=== PATIENT | female | born 1970 | race Hispanic/Latino ===

== ENCOUNTER 2019-01-07 18:23 | Emergency (ER) | payer OTHER ==
[2019-01-07] MEDS ORDERED: DiphenhydrAMINE HCL 50 MG/ML VIAL ONE (19:07)
[2019-01-07] MEDS ORDERED: KETOROLAC TROMETHAMINE 30MG/ML ONE (19:07)
[2019-01-07] MEDS ORDERED: PROCHLORPERAZINE EDISYLATE 10 MG/2 ML VIAL ONE (19:07)
[2019-01-07 19:12] LABS: BASOPHILS % (AUTO) 0.6 % (0.0-5.0); EOSINOPHILS % (AUTO) 1.8 % (0.0-8.0); HEMATOCRIT 38.3 % (36-48); LYMPHOCYTES % (AUTO) 32.1 % (21.0-51.0); MEAN CORPUSCULAR HEMOGLOBIN 26.5 pg (27.0-33.0); MEAN CORPUSCULAR VOLUME 80.2 fL (79-99); MONOCYTES % (AUTO) 8.5 % (3.0-13.0); NUCLEATED RED BLOOD CELLS 0.1 % (0.0-0.19); PLATELET COUNT (AUTO) 212 K/uL (130-400); RED BLOOD CELL COUNT(AUTO) 4.78 MIL/uL (4.00-5.50); RED CELL DISTRIBUTION WIDTH 18.5 % (11.0-15.5); WHITE BLOOD COUNT (AUTO) 8.4 K/uL (4.8-10.8)
[2019-01-07 19:21] LABS: CREATININE 0.8 mg/dL (0.5-1.5); POTASSIUM 3.9 mmol/L (3.5-5.1)
[2019-01-07 19:25] LABS: ALBUMIN 2.8 g/dL (3.5-5.0); BILIRUBIN,TOTAL 0.2 mg/dL (0.2-1.0); TOTAL PROTEIN, SERUM 6.1 g/dL (6.0-8.3)
== END 2019-01-07 22:50 | disposition home or self-care (01) ==
LOC: EDH 18:23
DX: R51 Headache (principal); E78.5 Hyperlipidemia, unspecified; I10 Essential (primary) hypertension
CPT/HCPCS: 36415; 80053; 85025; 96374; 96375; 99284; J0780; J1200; J1885

== ENCOUNTER 2020-06-02 11:57 | Day surgery (SDC) | payer MEDICAID ==
[~2020-06-02] VITALS: Ht 154.9 cm; Wt 141.1 kg
[2020-06-02] VITALS (9 sets, daily range): BP systolic 96–132; BP diastolic 35–69
[~2020-06-02 11:57] MED LIST: ALBU8TAB PO; ATOR10TA69 PO; ERGO50CA PO; FURO20TA4 PO; LOSA50TA64 PO; MELO-108 PO; POTA-79 PO
[2020-06-02] MEDS ORDERED: SODIUM CHLORIDE 0.9% 1000ML 1,000 ML IV ONE (13:45)
[2020-06-02] MEDS ORDERED: PROPOFOL 10 MG/ML 20ML VIAL IV ONE (15:34)
[2020-06-02] MEDS ORDERED: LIDOCAINE HCL-MPF 2% 5ML VIAL ONE (15:35)
[2020-06-02] MEDS ORDERED: GLYCOPYRROLATE 1 MG/5 ML SYRINGE ONE (15:52)
[2020-06-03] MEDS ORDERED: LACTATED RINGERS 1000ML 1,000 ML IV ONE (10:31)
== END 2020-06-02 16:40 | disposition home or self-care (01) ==
LOC: DAH 11:57 → ENDO 11:57
PROVIDERS: ATTEND Surgery
DX: R13.10 Dysphagia, unspecified (principal); K29.50 Unspecified chronic gastritis without bleeding; B96.81 Helicobacter pylori [H. pylori] as the cause of diseases classified elsewhere; K21.9 Gastro-esophageal reflux disease without esophagitis; E11.9 Type 2 diabetes mellitus without complications; I10 Essential (primary) hypertension; G47.30 Sleep apnea, unspecified; E66.01 Morbid (severe) obesity due to excess calories; Z90.49 Acquired absence of other specified parts of digestive tract; E78.00 Pure hypercholesterolemia, unspecified; Z20.828 Contact with and (suspected) exposure to other viral communicable diseases
CPT/HCPCS: 43239; 82948; 88305; 88342; 93005; A4215; A4221; A4222; A4223; A4606; A4620; A4657; A4663; A6260; C9803; J2704; J3490 ×2; J7030; U0003; J7120

== ENCOUNTER 2020-08-09 13:29 | Inpatient (IN) | payer MEDICAID ==
[~2020-08-09] VITALS: Ht 152.4 cm; Wt 135.3 kg
[2020-08-09] MEDS ORDERED: SODIUM CHLORIDE 0.9% 1000ML 1,000 ML IV ONE (13:51)
[2020-08-09 13:54] LABS: BASOPHILS % (AUTO) 0.2 % (0.0-5.0); HEMATOCRIT 30.9 % (36-48); LYMPHOCYTES % (AUTO) 5.8 % (21.0-51.0); MEAN CORPUSCULAR HEMOGLOBIN 27.7 pg (27.0-33.0); MEAN CORPUSCULAR VOLUME 86.6 fL (79-99); MONOCYTES % (AUTO) 6.1 % (3.0-13.0); NEUTROPHILS % (AUTO) 86.8 % (40.0-77.0); NUCLEATED RED BLOOD CELLS 0.6 % (0.0-0.19); PLATELET COUNT (AUTO) 278 K/uL (130-400); RED BLOOD CELL COUNT(AUTO) 3.57 MIL/uL (4.00-5.50); RED CELL DISTRIBUTION WIDTH 15.9 % (11.0-15.5); WHITE BLOOD COUNT (AUTO) 21.3 K/uL (4.8-10.8)
[2020-08-09 14:02] LABS: CARBON DIOXIDE 28 mmol/L (21-32); CHLORIDE 99 mmol/L (101-111); CREATININE 0.6 mg/dL (0.5-1.5); GLOMERULAR FILTR. RATE CALC 113 mL/min (>60); GLUCOSE,RANDOM 106 mg/dL (70-105); POTASSIUM 3.7 mmol/L (3.5-5.1); SODIUM SERUM 139 mmol/L (136-145); UREA NITROGEN, BLOOD 9 mg/dL (7-18)
[2020-08-09 14:06] LABS: ALANINE AMINOTRANSFERASE 16 U/L (12-78); ALBUMIN 2.4 g/dL (3.5-5.0); AMYLASE 21 U/L (25-115); ASPARTATE AMINOTRANSFERASE 28 U/L (10-37); BILIRUBIN,TOTAL 0.9 mg/dL (0.2-1.0); CREATINE KINASE, TOTAL 20 U/L (21-232); TOTAL PROTEIN, SERUM 6.3 g/dL (6.0-8.3)
[2020-08-09 14:11] LABS: LIPASE < 50 U/L (114-286)
[2020-08-09] MEDS ORDERED: IOHEXOL 350 MG/ML 100ML INFUS..BTL IV ONE (14:15)
[2020-08-09] MEDS ORDERED: ONDANSETRON HCL 4 MG/2 ML VIAL ONE ×2 (15:02→23:56)
[2020-08-09] MEDS ORDERED: MORPHINE SULFATE 4 MG/1ML SYG ONE ×3 (15:02→23:31)
[2020-08-09] MEDS: LACTATED RINGERS 1000ML 1,000 ML IV SCH (17:45)
[2020-08-09] MEDS: ZOSYN 3.375GM+NS 50ML 50 ML IV SCH (18:00)
[2020-08-09] MEDS ORDERED: ZOSYN 3.375GM+NS 50ML 50 ML IV ONE (18:34)
[2020-08-10] VITALS (7 sets, daily range): BP systolic 96–135; BP diastolic 42–61
[2020-08-10] MEDS: LACTATED RINGERS 1000ML 1,000 ML IV SCH ×4 (02:14→20:01)
[2020-08-10] MEDS: ZOSYN 3.375GM+NS 50ML 50 ML IV SCH ×3 (02:27→17:47)
[2020-08-10] MEDS: MORPHINE SULFATE 4 MG/1ML SYG IVP PRN ×3 (03:15→11:57)
[2020-08-10 05:33] LABS: HEMATOCRIT 32.2 % (36-48); MEAN CORPUSCULAR HEMOGLOBIN 27.2 pg (27.0-33.0); MEAN CORPUSCULAR HGB CONC 31.1 g/dL (32.0-36.0); MEAN CORPUSCULAR VOLUME 87.7 fL (79-99); NUCLEATED RED BLOOD CELLS 0.7 % (0.0-0.19); RED BLOOD CELL COUNT(AUTO) 3.67 MIL/uL (4.00-5.50); RED CELL DISTRIBUTION WIDTH 15.8 % (11.0-15.5); WHITE BLOOD COUNT (AUTO) 22.1 K/uL (4.8-10.8)
[2020-08-10 05:41] LABS: CREATININE 0.8 mg/dL (0.5-1.5); POTASSIUM 3.9 mmol/L (3.5-5.1)
[2020-08-10 05:44] LABS: INR 1.21 (0.85-1.15); PARTIAL THROMBOPLASTIN TIME 34.4 SEC (26.3-35.5)
[2020-08-10] MEDS: ONDANSETRON HCL 4 MG/2 ML VIAL IVP PRN (11:56)
[2020-08-10] MEDS ORDERED: DiphenhydrAMINE HCL 50 MG/ML VIAL IV PRN (14:00)
[2020-08-10] MEDS: KETOROLAC TROMETHAMINE 30MG/ML IV SCH ×2 (14:00→20:00)
[2020-08-10] MEDS ORDERED: HYDROMORPHONE 1 MG/1 ML AMP IVP SCH (14:00)
[2020-08-10] MEDS ORDERED: METRONIDAZOLE 500MG/100ML BAG 100 ML ONE (19:33)
[2020-08-10] MEDS: METRONIDAZOLE 500MG/100ML BAG 100 ML IVPB SCH (20:01)
[2020-08-10] MEDS: HYDROMORPHONE 1 MG/1 ML AMP IVP PRN (20:02)
[2020-08-11] MEDS: ZOSYN 3.375GM+NS 50ML 50 ML IV SCH ×3 (00:56→18:00)
[2020-08-11] MEDS: KETOROLAC TROMETHAMINE 30MG/ML IV SCH ×4 (00:56→22:17)
[2020-08-11] MEDS: METRONIDAZOLE 500MG/100ML BAG 100 ML IVPB SCH ×2 (04:24→14:00)
[2020-08-11 04:57] VITALS: BP 115/52
[2020-08-11] MEDS: ONDANSETRON HCL 4 MG/2 ML VIAL IVP PRN (05:00)
[2020-08-11] MEDS: HYDROMORPHONE 1 MG/1 ML AMP IVP PRN (05:01)
[2020-08-11 08:00] VITALS: BP 90/33
[2020-08-11 08:18] LABS: APPEARANCE,URINE SL CLOUDY (CLEAR); BILIRUBIN,URINE MODERATE (NEGATIVE); GLUCOSE, URINE (UA) NEGATIVE (NEGATIVE); KETONES,URINE 15 mg/dL (NEGATIVE); LEUKOCYTE ESTERASE ,URINE NEGATIVE (NEGATIVE); NITRATE,URINE POSITIVE (NEGATIVE); OCCULT BLOOD,URINE SMALL (NEGATIVE); PROTEIN,URINE 100 mg/dL (NEGATIVE); UROBILINOGEN,URINE 0.2 mg/dL (0.2-1.0)
[2020-08-11 08:26] LABS: COLOR,URINE AMBER (YELLOW)
[2020-08-11 08:37] LABS: WBC,URINE 0-1 /HPF (0-1)
[2020-08-11 08:38] LABS: BACTERIA,URINE Many /HPF (None Seen); SQUAMOUS EPITHELIAL CELL,UR Few /HPF (0-2)
[2020-08-11] MEDS: PANTOPRAZOLE SODIUM 40 MG TABLET.DR PO SCH (09:00)
[2020-08-11 11:00] VITALS: BP 103/61
[2020-08-11] MEDS ORDERED: DIATR MEGLU/DIATRIZOATE SODIUM 30 ML BOTTLE ONE ×2 (11:03→15:38)
[2020-08-11] MEDS ORDERED: IOHEXOL-350 75 ML VIAL IV ONE (11:03)
[2020-08-11 16:00] VITALS: BP 98/42
[2020-08-11] MEDS: LACTATED RINGERS 1000ML 1,000 ML IV SCH (16:56)
[2020-08-11 19:45] VITALS: BP 101/56
[2020-08-11 23:59] VITALS: BP 108/59
[2020-08-12] MEDS: LACTATED RINGERS 1000ML 1,000 ML IV SCH ×3 (01:45→17:45)
[2020-08-12 03:27] VITALS: BP 102/43
[2020-08-12] MEDS: ZOSYN 3.375GM+NS 50ML 50 ML IV SCH ×3 (03:33→18:31)
[2020-08-12] MEDS: KETOROLAC TROMETHAMINE 30MG/ML IV SCH ×4 (03:42→21:18)
[2020-08-12 08:00] VITALS: BP 110/62
[2020-08-12] MEDS: PANTOPRAZOLE SODIUM 40 MG TABLET.DR PO SCH (09:00)
[2020-08-12] MEDS: FLUCONAZOLE 200 MG/NS 100 ML 100 ML IV SCH (11:57)
[2020-08-12 13:21] VITALS: BP 108/67
[2020-08-12 17:58] VITALS: BP 121/73
[2020-08-12 19:10] VITALS: BP 111/63
[2020-08-12 22:55] VITALS: BP 115/71
[2020-08-13] MEDS: LACTATED RINGERS 1000ML 1,000 ML IV SCH ×3 (03:18→17:45)
[2020-08-13] MEDS: ZOSYN 3.375GM+NS 50ML 50 ML IV SCH ×3 (03:18→17:54)
[2020-08-13] MEDS: KETOROLAC TROMETHAMINE 30MG/ML IV SCH ×4 (03:21→20:27)
[2020-08-13 03:28] VITALS: BP 106/65
[2020-08-13 08:00] VITALS: BP 113/52
[2020-08-13] MEDS: FLUCONAZOLE 200 MG/NS 100 ML 100 ML IV SCH (09:58)
[2020-08-13] MEDS: PANTOPRAZOLE SODIUM 40 MG TABLET.DR PO SCH (09:58)
[2020-08-13 11:00] VITALS: BP 101/66
[2020-08-13 16:00] VITALS: BP 110/71
[2020-08-13 20:34] VITALS: BP 122/66
[2020-08-13 23:29] VITALS: BP 123/62
[2020-08-14] MEDS: ZOSYN 3.375GM+NS 50ML 50 ML IV SCH ×3 (01:12→19:31)
[2020-08-14] MEDS: LACTATED RINGERS 1000ML 1,000 ML IV SCH ×3 (01:12→17:45)
[2020-08-14] MEDS: KETOROLAC TROMETHAMINE 30MG/ML IV SCH ×4 (02:00→20:00)
[2020-08-14 04:40] VITALS: BP 124/63
[2020-08-14 06:07] LABS: HEMATOCRIT 29.6 % (36-48); MEAN CORPUSCULAR HEMOGLOBIN 27.3 pg (27.0-33.0); MEAN CORPUSCULAR HGB CONC 30.7 g/dL (32.0-36.0); MEAN CORPUSCULAR VOLUME 88.9 fL (79-99); NUCLEATED RED BLOOD CELLS 0.5 % (0.0-0.19); PLATELET COUNT (AUTO) 339 K/uL (130-400); RED BLOOD CELL COUNT(AUTO) 3.33 MIL/uL (4.00-5.50); RED CELL DISTRIBUTION WIDTH 16.4 % (11.0-15.5); WHITE BLOOD COUNT (AUTO) 8.5 K/uL (4.8-10.8)
[2020-08-14 06:21] LABS: ALBUMIN 1.7 g/dL (3.5-5.0); BILIRUBIN,TOTAL 0.4 mg/dL (0.2-1.0); CREATININE 0.6 mg/dL (0.5-1.5); POTASSIUM 3.3 mmol/L (3.5-5.1); TOTAL PROTEIN, SERUM 6.2 g/dL (6.0-8.3)
[2020-08-14 06:53] LABS: LYMPHOCYTES % (MANUAL) 15 % (22-44); MONOCYTES % (MANUAL) 6 % (2-9); SEGMENTED NEUTROPHILS % 79 % (40-70)
[2020-08-14 06:54] LABS: MAN.DIFF COMMENT-IMPRESSION MANUAL DIFFERENTIAL; PLATELET MORPHOLOGY COMMENT ADEQUATE
[2020-08-14 07:53] VITALS: BP 122/74
[2020-08-14 11:00] VITALS: BP 117/72
[2020-08-14] MEDS: PANTOPRAZOLE SODIUM 40 MG TABLET.DR PO SCH (11:50)
[2020-08-14] MEDS: FLUCONAZOLE 200 MG/NS 100 ML 100 ML IV SCH (11:50)
[2020-08-14 16:09] VITALS: BP 137/75
[2020-08-14 19:30] VITALS: BP 121/74
[2020-08-14] MEDS ORDERED: POTASSIUM CHLORIDE 20 MEQ ERTAB PO SCH (19:50)
[2020-08-14 23:54] VITALS: BP 132/73
[2020-08-14] MEDS: HYDROMORPHONE 1 MG/1 ML AMP IVP PRN (23:54)
[2020-08-15] MEDS: KETOROLAC TROMETHAMINE 30MG/ML IV SCH ×2 (02:00→09:14)
[2020-08-15] MEDS: ZOSYN 3.375GM+NS 50ML 50 ML IV SCH ×3 (02:08→18:10)
[2020-08-15] MEDS: LACTATED RINGERS 1000ML 1,000 ML IV SCH (02:09)
[2020-08-15 03:39] VITALS: BP 138/77
[2020-08-15 08:00] VITALS: BP 142/81
[2020-08-15] MEDS: PANTOPRAZOLE SODIUM 40 MG TABLET.DR PO SCH (09:05)
[2020-08-15] MEDS: FLUCONAZOLE 200 MG/NS 100 ML 100 ML IV SCH (09:05)
[2020-08-15 11:00] VITALS: BP 135/77
[2020-08-15] MEDS ORDERED: DIATR MEGLU/DIATRIZOATE SODIUM 30 ML BOTTLE ONE ×2 (14:25)
[2020-08-15 16:00] VITALS: BP 134/80
[2020-08-15] MEDS ORDERED: IOHEXOL 350 MG/ML 100ML INFUS..BTL IV ONE (16:28)
[2020-08-15 20:00] VITALS: BP 138/78
[2020-08-15] MEDS: HYDROMORPHONE 1 MG/1 ML AMP IVP PRN (21:26)
[2020-08-16] VITALS: BP 116/56
[2020-08-16] MEDS: ZOSYN 3.375GM+NS 50ML 50 ML IV SCH ×2 (02:02→09:47)
[2020-08-16 04:00] VITALS: BP 130/52
[2020-08-16 08:46] VITALS: BP 117/81
[2020-08-16] MEDS: PANTOPRAZOLE SODIUM 40 MG TABLET.DR PO SCH (09:47)
[2020-08-16] MEDS: FLUCONAZOLE 200 MG/NS 100 ML 100 ML IV SCH (09:47)
[2020-08-16 12:15] VITALS: BP 142/67
== END 2020-08-16 17:15 | disposition home or self-care (01) | DRG 720 ==
LOC: EDH 13:29 → EDHIP 13:30 → 3BH 08-10 00:39 → 3CH 08-14 19:37
PROVIDERS: ADMIT Surgery; ATTEND Surgery
PROC: 05HY33Z Insertion of Infusion Device into Upper Vein, Percutaneous Approach (ICD-10-PCS; principal; 2020-08-12)
DX: A41.9 Sepsis, unspecified organism (principal); K65.1 Peritoneal abscess; E66.01 Morbid (severe) obesity due to excess calories; R53.81 Other malaise; R58 Hemorrhage, not elsewhere classified; D64.9 Anemia, unspecified; I10 Essential (primary) hypertension; Y83.8 Other surgical procedures as the cause of abnormal reaction of the patient, or of later complication, without mention of misadventure at the time of the procedure; Z68.43 Body mass index [BMI] 50.0-59.9, adult; Z98.84 Bariatric surgery status; Y92.89 Other specified places as the place of occurrence of the external cause
CPT/HCPCS: 36415; 74177; 80048; 80053; 81001; 82150; 82550; 82948; 83605; 83690; 84484; 85025; 85027; 85610; 85730; 87040; 87088; 93005; C1894; G0378; J1170; J1200; J1450; J1885; J2270; J2405; J2543; J3490; J7030; J7120; Q9963; Q9967

== ENCOUNTER 2022-01-05 05:30 | Day surgery (SDC) | payer OTHER, MEDICARE ==
[2022-01-04 16:36] LABS: BASOPHILS % (AUTO) 0.2 % (0.0-5.0); EOSINOPHILS % (AUTO) 1.2 % (0.0-8.0); HEMATOCRIT 42.6 % (36-48); LYMPHOCYTES % (AUTO) 37.8 % (21.0-51.0); MEAN CORPUSCULAR HEMOGLOBIN 30.8 pg (27.0-33.0); MEAN CORPUSCULAR HGB CONC 33.6 g/dL (32.0-36.0); MEAN CORPUSCULAR VOLUME 91.6 fL (79-99); MONOCYTES % (AUTO) 6.2 % (3.0-13.0); NEUTROPHILS % (AUTO) 54.4 % (40.0-77.0); PLATELET COUNT (AUTO) 188 K/uL (130-400); RED BLOOD CELL COUNT(AUTO) 4.65 MIL/uL (4.00-5.50); WHITE BLOOD COUNT (AUTO) 8.1 K/uL (4.8-10.8)
[2022-01-04 17:16] VITALS: BP 129/71
[~2022-01-05] VITALS: Ht 149.9 cm; Wt 84.1 kg
[2022-01-05] VITALS (18 sets, daily range): BP systolic 103–153; BP diastolic 56–82
[2022-01-05] MEDS ORDERED: CEFAZOLIN SODIUM 1 GM VIAL ONE (06:51)
[2022-01-05] MEDS: LACTATED RINGERS 1000ML 1,000 ML IV SCH ×2 (07:16→10:00)
[2022-01-05] MEDS ORDERED: STRONG IODINE SOLN 14ML BOTTLE ONE (07:41)
[2022-01-05] MEDS ORDERED: CEFAZOLIN SODIUM 1 GM VIAL IVP ONE (08:00)
[2022-01-05] MEDS ORDERED: MIDAZOLAM HCL 1 MG/ML 2ML VIAL ONE (08:24)
[2022-01-05] MEDS ORDERED: ONDANSETRON 4MG INJ ONE ×3 (08:24→10:47)
[2022-01-05] MEDS ORDERED: LIDOCAINE PF 100MG/5ML (2%) SYRINGE 5ML ONE (08:24)
[2022-01-05] MEDS ORDERED: PROPOFOL 10 MG/ML 20ML VIAL IV ONE (08:25)
[2022-01-05] MEDS ORDERED: FENTANYL CITRATE PF 50 MCG/1 ML 2ML VIAL ONE (08:25)
[2022-01-05] MEDS ORDERED: ROCURONIUM 10MG/1ML SYR 10 MG/ML ML ONE (08:25)
[2022-01-05] MEDS ORDERED: GLYCOPYRROLATE 1 MG/5 ML SYRINGE ONE (10:20)
[2022-01-05] MEDS ORDERED: NEOSTIGMINE 5MG/5ML SYR IV ONE (10:20)
[2022-01-05] MEDS ORDERED: MEPERIDINE-PF 25 MG/ML SYG ONE (10:47)
[2022-01-05] MEDS ORDERED: KETOROLAC 30MG VIAL (30MG/ML) ONE (11:09)
== END 2022-01-05 12:45 | disposition home or self-care (01) ==
LOC: DAH 05:30
PROVIDERS: ATTEND Obstetrics & Gynecology
DX: N95.0 Postmenopausal bleeding (principal); N84.0 Polyp of corpus uteri; Z98.84 Bariatric surgery status; Z98.890 Other specified postprocedural states; Z79.899 Other long term (current) drug therapy; Z20.822 Contact with and (suspected) exposure to COVID-19
CPT/HCPCS: 36415; 58558; 85025; 86850; 86900; 86901; 87635; A4215; A4221; A4222; A4223; A4351; A4355; A4663; A6260; C9803; J0690; J1885; J2001; J2175; J2250; J2405 ×3; J2704; J2710; J3010; J3490; J7030; J7120

== ENCOUNTER 2022-09-26 14:14 | Emergency (ER) | payer OTHER, MEDICARE ==
[~2022-09-26] VITALS: Ht 152.4 cm; Wt 86.2 kg
[2022-09-26 14:31] LABS: BASOPHILS % (AUTO) 0.1 % (0.0-5.0); HEMATOCRIT 41.5 % (36-48); LYMPHOCYTES % (AUTO) 27.6 % (21.0-51.0); MEAN CORPUSCULAR HGB CONC 34.5 g/dL (32.0-36.0); MONOCYTES % (AUTO) 5.9 % (3.0-13.0); NEUTROPHILS % (AUTO) 64.8 % (40.0-77.0); PLATELET COUNT (AUTO) 304 K/uL (130-400); RED BLOOD CELL COUNT(AUTO) 4.77 MIL/uL (4.00-5.50); RED CELL DISTRIBUTION WIDTH 12.7 % (11.0-15.5); WHITE BLOOD COUNT (AUTO) 8.2 K/uL (4.8-10.8)
[2022-09-26 14:37] LABS: CREATININE 0.5 mg/dL (0.5-1.5); POTASSIUM 3.3 mmol/L (3.5-5.1)
[2022-09-26 14:46] LABS: ALBUMIN 3.4 g/dL (3.5-5.0); TOTAL PROTEIN, SERUM 7.5 g/dL (6.0-8.3)
[2022-09-26] MEDS ORDERED: MAG/ALUM/SIMETH 30 ML UDCUP PO ONE (15:30)
[2022-09-26] MEDS ORDERED: PANTOPRAZOLE 40 MG/VIAL IVP ONE (15:30)
[2022-09-26] MEDS ORDERED: LIDOCAINE HCL 2% VISCOUS 15 ML UDCUP PO ONE (15:30)
[2022-09-26] MEDS ORDERED: IOHEXOL 350 MG/ML 100ML INFUS..BTL IV ONE (16:22)
[2022-09-26 17:00] VITALS: BP 136/73
[2022-09-26] MEDS ORDERED: MAAL30 PO (17:27)
[2022-09-26] MEDS ORDERED: POTASSIUM BICARB/CIT AC 25 MEQ TABLET.EFF PO ONE (17:30)
== END 2022-09-26 17:51 | disposition home or self-care (01) ==
LOC: EDH 14:14
DX: K29.70 Gastritis, unspecified, without bleeding (principal); E11.9 Type 2 diabetes mellitus without complications; I10 Essential (primary) hypertension
CPT/HCPCS: 99285; 74177; 96374; 84484; 80053; 83690; 85025; 36415; 93005; C9113; Q9967

== ENCOUNTER → 2022-12-27 | Outpatient (CLI) | payer OTHER, MEDICARE ==
[~2022-12-27] MED LIST changes: -ALBU8TAB PO; -ATOR10TA69 PO; -ERGO50CA PO; -FURO20TA4 PO; -LOSA50TA64 PO; +MAAL30 PO; -MELO-108 PO; -POTA-79 PO
== END | disposition home or self-care (01) ==
LOC: RAH 13:56
PROVIDERS: ATTEND Internal Medicine
DX: Z12.31 Encounter for screening mammogram for malignant neoplasm of breast (principal); R92.1 Mammographic calcification found on diagnostic imaging of breast
CPT/HCPCS: 77067